=== PATIENT | male | born 1935 | race Caucasian/White ===

== ENCOUNTER → 2022-02-20 | Outpatient (CLI) | payer OTHER ==
[~2022-02-20] VITALS: Ht 172.7 cm; Wt 93.4 kg
[~2022-02-20] MED LIST: REGADENOSON 0.4 MG/5 ML PF SYG IVP SCH
== END | disposition home or self-care (01) ==
LOC: EDUNIT# 02-06 08:10 → SHCH 07:57
PROVIDERS: ATTEND Internal Medicine
DX: I45.10 Unspecified right bundle-branch block (principal); I50.20 Unspecified systolic (congestive) heart failure; R94.31 Abnormal electrocardiogram [ECG] [EKG]
CPT/HCPCS: 78452; 93017; 96374; A9500 ×2; J2785

== ENCOUNTER → 2022-03-10 | Outpatient (CLI) | payer OTHER | END | disposition home or self-care (01) | LOC: SHCH 14:10 | PROVIDERS: ATTEND Internal Medicine | DX: R22.43 Localized swelling, mass and lump, lower limb, bilateral (principal) | CPT/HCPCS: 93970 ==

== ENCOUNTER → 2023-02-22 | Outpatient (CLI) | payer OTHER | END | disposition home or self-care (01) | LOC: SHCH 14:09 | PROVIDERS: ATTEND Student in an Organized Health Care Education/Training Program | DX: I10 Essential (primary) hypertension (principal); R60.9 Edema, unspecified; E78.5 Hyperlipidemia, unspecified | CPT/HCPCS: 93306 ==

== ENCOUNTER 2025-01-27 13:59 | Emergency (ER) | payer OTHER ==
[~2025-01-27] VITALS: Ht 170.2 cm; Wt 85.7 kg
--- NOTE | 2025-01-27 14:25 | EKG ---
[facility] Test Date: 2025-01-27 Test Time: 14:22:52 Pat Name: BUNNY OLIVEIRA Department: ED Room: Gender: M [employer] Architect: [id number] : 1935 Requested By: MAREN RINALDI Order Number: [id number] Reading MD: Corby Fraga Measurements Intervals [place] Rate: 51 P: 0 CA: 372 QRS: 27 QRSD: 161 T: 17 QT: 436 QTc: 402 Interpretive Statements Sinus rhythm Prolonged CA interval Right bundle branch block No previous ECG available for comparison Electronically Signed On 01-29-2025 22:14:14 CDT by Corby Fraga Please click the below link to view image of tracing.
[2025-01-27 14:30] VITALS: BP 112/44; PULSE 50; RESP 17; TEMP 97.7; O2SAT 99
[2025-01-27 14:31] LABS: BASOPHILS # (AUTO) 0.04 K/uL (0.00-0.20); BASOPHILS % (AUTO) 0.5 % (0.0-5.0); EOSINOPHILS # (AUTO) 0.19 K/uL (0.00-0.70); EOSINOPHILS % (AUTO) 2.2 % (0.0-8.0); HEMATOCRIT 50.7 % (42-54); IMMATURE GRANULOCYTE ABSOLUTE 0.01 K/uL (0-1); LYMPHOCYTES # (AUTO) 1.7 K/uL (1.0-4.8); LYMPHOCYTES % (AUTO) 19.8 % (21.0-51.0); MEAN CORPUSCULAR HEMOGLOBIN 32.4 pg (27.0-33.0); MEAN CORPUSCULAR HGB CONC 32.7 g/dL (32.0-36.0); MONOCYTES # (AUTO) 0.7 K/uL (0.1-1.0); MONOCYTES % (AUTO) 7.7 % (3.0-13.0); NEUTROPHILS # (AUTO) 6.1 K/uL (1.8-7.7); NEUTROPHILS % (AUTO) 69.7 % (40.0-77.0); PLATELET COUNT (AUTO) 188 K/uL (130-400); RED BLOOD CELL COUNT(AUTO) 5.12 MIL/uL (4.50-6.20); RED CELL DISTRIBUTION WIDTH 13.9 % (11.0-15.5); WHITE BLOOD COUNT (AUTO) 8.8 K/uL (4.8-10.8)
[2025-01-27 14:42] LABS: CREATININE 1.5 mg/dL (0.5-1.3); POTASSIUM 4.5 mmol/L (3.5-5.1)
--- NOTE | 2025-01-27 14:59 | HMCIMG ---
CT HEAD/BRAIN W/O CONTRAST HISTORY: Left eye pulsation COMPARISON: None TECHNIQUE: Multiple sequential axial images of the head were obtained from the base of the skull through vertex. Patient was not given contrast through intravenous route. FINDINGS: The ventricles and extraventricular CSF spaces are dilated consistent with cerebral atrophy. Nonspecific white matter changes seen. There is no midline shift, mass effect or herniation. No acute intracranial bleed is seen. Visualized portion of the paranasal sinuses are grossly within normal limits. IMPRESSION: 1. No acute intracranial bleed is seen. 2. Atrophy with white matter changes. CT was performed with one or more following dose reduction techniques: automated exposure control, adjustment of the mA and kv according to patient's size, or use of a iterative reconstruction technique.
--- NOTE | 2025-01-27 15:03 | ERN ---
General Chief Complaint: Vision Problem Stated Complaint: EYE PROBLEM Time Seen by MD: 14:00 Source: patient History of Present Illness Initial Comments PATIENT IS A 89-YEAR-OLD MALE COMING IN COMPLAINING OF LEFT EYE CENTER VISION LOSS. HE STATES THAT HE WAS DRIVING AND FELT HIS LEFT EYE VISION SLOWLY DECREASE LEFT EYE VISION. HE STATES THAT HE ALSO FELT HIS HEART RACING. Allergies: Coded Allergies: codeine (Unverified Allergy, Unknown, 02/19/22) Past Medical History Past Medical History: Diabetes-Type II, Hypertension Past Surgical History: Appendectomy Surgical History Other: RIGHT LET WITH METAL RATNA SX ROS Dictation 01/27/2025 TIME 2:22 P.M. VENTRICULAR RATE 51 SINUS RHYTHM MS [address] WAVE ELEVATION OR DEPRESSION Results Laboratory and Microbiology Lab and Micro Result Laboratory Tests Test 01/27/25 14:18 White Blood Count 8.8 K/uL (4.8-10.8) Red Blood Count 5.12 MIL/uL (4.50-6.20) Hemoglobin 16.6 g/dL (14.0-18.0) Hematocrit 50.7 % (42-54) Mean Corpuscular Volume 99.0 fL (79-99) Mean Corpuscular Hemoglobin 32.4 pg (27.0-33.0) Mean Corpuscular Hemoglobin Concent 32.7 g/dL (32.0-36.0) Red Cell Distribution Width 13.9 % (11.0-15.5) Platelet Count 188 K/uL (130-400) Mean Platelet Volume 11.2 fL (7.5-10.5) H Immature Granulocyte % (Auto) 0.1 % (0-1) Neutrophils (%) (Auto) 69.7 % (40.0-77.0) Lymphocytes (%) (Auto) 19.8 % (21.0-51.0) L Monocytes (%) (Auto) 7.7 % (3.0-13.0) Eosinophils (%) (Auto) 2.2 % (0.0-8.0) Basophils (%) (Auto) 0.5 % (0.0-5.0) Neutrophils # (Auto) 6.1 K/uL (1.8-7.7) Lymphocytes # (Auto) 1.7 K/uL (1.0-4.8) Monocytes # (Auto) 0.7 K/uL (0.1-1.0) Eosinophils # (Auto) 0.19 K/uL (0.00-0.70) Basophils # (Auto) 0.04 K/uL (0.00-0.20) Absolute Immature Granulocyte (auto 0.01 K/uL (0-1) Nucleated Red Blood Cells 0.0 % (0.0-0.19) Sodium Level 137 mmol/L (136-145) Potassium Level 4.5 mmol/L (3.5-5.1) Chloride Level 104 mmol/L (101-111) Carbon Dioxide Level 28 mmol/L (21-32) Blood Urea Nitrogen 23 mg/dL (7-18) H Creatinine 1.5 mg/dL (0.5-1.3) H Glomerular Filtration Rate Calc 45 mL/min (>90) Random Glucose 301 mg/dL (70-105) H Total Calcium 8.7 mg/dL (8.5-10.1) Troponin I High Sensitivity 7 ng/L (4-75) EKG/XRAY/US/CT/MRI CT Scan Comment [facility] [place] [address] IMAGING REPORT Signed PATIENT: BUNNY OLIVEIRA MR#: [id number] : 1935 SEX: M AGE: 89 LOCATION: [facility] ORDER 1412 STATUS: REG ER REPORT#: [id number] SERVICE 1408 REASON: LEFT EYE ORDERING PHYSICIAN: MAREN RINALDI MD PROCEDURE: HEAD WO - CT HEAD/BRAIN W/O CONTRAST CT HEAD/BRAIN W/O CONTRAST HISTORY: Left eye pulsation COMPARISON: None TECHNIQUE: Multiple sequential axial images of the head were obtained from the base of the skull through vertex. Patient was not given contrast through intravenous route. FINDINGS: The ventricles and extraventricular CSF spaces are dilated consistent with cerebral atrophy. Nonspecific white matter changes seen. There is no midline shift, mass effect or herniation. No acute intracranial bleed is seen. Visualized portion of the paranasal sinuses are grossly within normal limits. IMPRESSION: 1. No acute intracranial bleed is seen. 2. Atrophy with white matter changes. CT was performed with one or more following dose reduction techniques: automated exposure control, adjustment of the mA and kv according to patient's size, or use of a iterative reconstruction technique. DICTATED BY: MARIAM CHAND MD DATE: 01/27/251450 ELECTRONICALLY SIGNED BY: MARIAM CHAND MD DATE: 01/27/251458 [facility] MDM: Differential diagnosis: Stroke, CVA, Rationale: Tests considered and ordered secondary to shared decision making in clude: Previous outside records reviewed: Old ER visits. Risk of complication and/or morbidity or mortality of patient management: None Medications-Per medication reconciliation Need for hospitalization: Patient does not meet criteria for hospitalization. Need for emergency major/minor surgery: No There are no social concerns with this patient. Prescription drug management Prescriptions will include symptomatic care Patient's prior external medical records from other ER visits were reviewed by me as indicated. Prior testing and results from previous visits were reviewed. Prior tests were taken into account with medical decision making and resource utilization, independent historian/historians were used to obtain complete medical history. I independently interpreted the test that were performed, results were reviewed by me and considered findings on radiology if ordered. Medical management and examination interpretation discussions were had by me with other qualified healthcare professionals as indicated for the patient's care. Patient was pending to be transferred to [facility] to rule out a CVA. Patient states he does not want to leave to [facility] and refuses to go. He states he does not want to be seen anymore and left against medical adv ice. Handoff was given to incoming physician who reports patient has signed off on AMA form. ED Course Orders Procedure Category Date Status Time Cbc With Differential LAB 01/27/25 Complete 14:08 Basic Metabolic Panel LAB 01/27/25 Complete 14:08 12 Lead Ekg Tracing- EKG 01/27/25 Complete Technical 14:08 Troponin I High LAB 01/27/25 Complete Sensitivity 14:08 Ct Head/Brain W/O CT 01/27/25 Resulted Contrast 14:08 Ct Angio Head And Neck CT 01/27/25 Resulted 16:45 Iohexol (Omnipaque) PHA 01/27/25 Complete 16:52 Current Medications Medications (Trade) Dose Ordered Sig/Jasiel Route PRN Reason Start Time Stop Time Status Last Admin Dose Admin Iohexol (Omnipaque) 35,000 mg STK-MED ONCE IV 01/27/25 16:52 01/27/25 16:52 DC Vital Signs Date Time Temp Pulse Resp B/P (MAP) Pulse Ox O2 Delivery O2 Flow Rate FiO2 01/27/25 14:30 97.7 50 17 112/44 99 Room Air* 0 21 01/27/25 14:06 98.8 52 16 142/90 Room Air DX & DISP Disposition: Other(Comment) (Patient care transitioned to Dr. Larsen) Departure Impression: Primary Impression: Eye abnormalities Additional Impression: CVA (cerebral vascular accident) Condition: Against Medical Advice Referrals: GARRICK ASHLEY MD (PCP) MAREN RINALDI MD January 27, 2025 15:03
[2025-01-27] MEDS ORDERED: IOHEXOL 350 MG/ML 100ML INFUS..BTL IV ONE (16:52)
--- NOTE | 2025-01-27 17:09 | CONS ---
CONSULT NOTE: [place] Neuro Note # Demographics Consult Type: General Neurology Patient Location: Emergency Room First Name: BUNNY Last Name: ROXANNE Date of : 1935 Age: 89 Gender: Male Facility: [facility] Time of Initial Page (Central Time): 01/27/2025 15:10 Time of Return Call (Central Time): 01/27/2025 15:10 # HPI History: Routine neuro consult requested for vision loss. 89M left eye painless vision loss.. h/o DM, HTN and prior h/o stroke. had a pulsating feeling "flashing in the left eye". noticed at noon time. 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 per pt he noticed it at noon. on my exam, he has right facial droop which was not noticed by ED doc or reported by patient. He has h/o stroke, but pt denies any facial droop due to it. # Scores Level of Consciousness 1a: [0] = Alert; keenly responsive LOC Questions 1b: [0] = Answers both questions correctly LOC Commands 1c: [0] = Performs both tasks correctly Best Gaze 2: [0] = Normal Visual 3: [0] = No visual loss Facial Palsy 4: [1] = Minor paralysis Motor Arm Left 5a: [0] = No drift Motor Arm Right 5b: [0] = No drift Motor Leg Left 6a: [0] = No drift Motor Leg Right 6b: [0] = No drift Limb Ataxia 7: [0] = Absent Sensory 8: [0] = Normal Best Language 9: [0] = No aphasia Dysarthria 10: [0] = Normal Extinction and Inattention 11: [0] = No abnormality NIHSS Total: 1 # PMH-FH- Past Medical History: - stroke - Diabetes - hypertension Medications: - aspirin # Data Time Head CT personally read by me (Central Time): 01/27/2025 16:[address]: - no bleed # Assessment Impression: - Ischemic Stroke (Acute) left eye painless vision loss along with right facial droop concern for CRAO. also rule out other cause of painless vision loss including retinal retainment and vitreal hemorrhage recommend STAT CTA head and neck and Urgent Ophthalmological evaluation. If diagnosis is CRAO or ocular stroke, recommend ASA, plavix, statin and further w/u as mentioned below including MRI brain and TTE. # Plan Thrombolytic/Intervention: Possible IA candidate Thrombolytic Exclusion: - > 4.5 hours recommend ophthalmological evaluation. Possible IA Candidate: - CTA pending Target Blood Pressure: - SBP < 220 - DBP < 120 Labs: - B12 - hemoglobin A1c - lipid panel - TSH - ua Imaging: (urgency: STAT): - CT Angiogram Head and CT Angiogram Neck AND call back with results if abnormal Imaging: (urgency: routine): - MRI Brain without contrast Diagnostic Test: - echo with bubble study Therapy/Evaluation: - NPO until swallow evaluation - PT/OT evaluation - speech/swallow consultation Medication: - start statin with goal of LDL < 70 - aspirin 81 mg PLUS clopidogrel (Plavix) 75 mg for 21 days, then monotherapy therafter DVT Prophylaxis: - SCD - chemical DVT prophylaxis Other: - If patient has any neurological deterioration please call me back immediately - telemetry monitoring - I have discussed my recommendations with the referring provider - permissive hypertension - will need event monitor or loop recorder as outpatient if atrial fibrillation not found as inpatient # Logistics Attestation of consult completion: The patient is located at: [facility]. Facility staff participated in the visit. I performed this telemedicine visit from my offsite office utilizing interactive 2 way audio and visual telecommunication technology. Total time spent in telemedicine encounter: I spent 15 minutes reviewing clinical data and/or imaging, obtaining history, examining the patient, communicating with the onsite care team, and in preparation of this report. # Demographics First Name: BUNNY Last Name: ROXANNE Facility: [facility] ADAN GUERRERO MD January 27, 2025 17:09
--- NOTE | 2025-01-27 18:26 | HMCIMG ---
CT ANGIO HEAD AND NECK REASON: LEFT EYE VISION TECHNIQUE: Images were obtained from thoracic inlet through the vertex of the skull before and after bolus IV infusion of 100 ml of Isovue 350. 2D and 3D multiplanar reconstruction images were obtained in the head and neck. CT was performed with one or more of the following dose reduction techniques: automated exposure control, adjustment of the mA and/or kV according to patient size, or use of iterative reconstruction technique FINDINGS: Post contrast images in the neck show normal-appearing common and internal carotid arteries. Bifurcations appear unremarkable. There is no evidence of atherosclerotic change or focal narrowing. Images in the brain demonstrate normal-appearing internal carotid arteries. Anterior, middle and posterior cerebral arteries appear normal. Posterior fossa vessels are unremarkable as well. There is no evidence of aneurysm or AVM. There is no evidence of focal vessel occlusion. IMPRESSION: Normal CT angiography of the head and neck.
--- NOTE | 2025-01-27 19:32 | NUR ---
PT REFUSING TRANSFER TO [facility] FOR NEURO WORKUP, PT REQUESTING TO LEAVE AMA, PT IS A&OX4, GCS 15, OF SOUND MIND TO MAKE OWN DECISIONS. RISKS OF LEAVING AMA EXPLAINED TO PT IN DETAIL, PT VERBALIZED UNDERSTANDING OF ALL INFORMATION. DR. STANFORD MADE AWARE, PAPERWORK SIGNED AND PLACED IN CHART.
== END 2025-01-27 19:35 | disposition left against medical advice (07) ==
LOC: EDH 13:59
DX: H54.7 Unspecified visual loss (principal); I63.9 Cerebral infarction, unspecified; E11.9 Type 2 diabetes mellitus without complications; I10 Essential (primary) hypertension; Z88.5 Allergy status to narcotic agent; Z90.49 Acquired absence of other specified parts of digestive tract
CPT/HCPCS: 99285; 70496; 84484; 80048; 85025; 36415; 70498; 93005; 70450; Q9967